=== PATIENT | male | born 1955 | race Caucasian/White ===

== ENCOUNTER 2024-08-13 06:04 | Day surgery (SDC) | payer MEDICARE, SELFPAY ==
[2024-08-13] VITALS (12 sets, daily range): BP systolic 115–153; BP diastolic 69–88; PULSE 60–107; RESP 14–16; TEMP 36.1–36.5; O2SAT 93–97; BMI 23.3
[2024-08-13] MEDS: SODIUM CHLORIDE 0.9 % (FLUSH) 10 ML SYRINGE IVF (06:55)
[2024-08-13] MEDS: LACTATED RINGERS 1000 ML 1,000 ML 100 ML IV (06:55)
--- NOTE | 2024-08-13 07:08 | P.GSOP_ITS ---
Operative Note Date of procedure: 08/13/24 Pre-op diagnosis: 1. Symptomatic left inguinal hernia. Post-op diagnosis: 1. Indirect left inguinal hernia with incarcerated sigmoid epiploic fat. Type of Procedure: 1. Open left inguinal hernia repair with mesh. Indications: 68-year-old male was seen in clinic with a painful left inguinal bulge that was noted several weeks prior to his clinic presentation. Patient works part- time as a bobtail driver and noticed that he was bothered by his pain in the left groin mostly with sitting. He denies any episodes of incarceration. On clinical exam patient was found to have a moderately sized left inguinal hernia that was reducible. Given patient's clinical history and his symptoms, an open left ingu inal hernia repair was recommended. The procedure was discussed in detail. The risks associated procedure including infection, bleeding, nerve pain, and hernia recurrence were all discussed with the patient, he agreed to proceed. Procedure Description: After discussing the risks and benefits of the procedure, the patient signed informed consent.? The operative site was marked and the patient was brought to the operating room and placed on the operating table in supine position.? Care was taken to pad the patient's pressure points.?? The patient was then intubated by anesthesia.?? The operative site was then prepped and draped in the usual sterile fashion.? A time-out was then performed. Surgical site was prepped and draped in sterile fashion. Site of the incision was marked with a marking pen and local anesthetic was injected. An oblique incision was made just above and medial to the left inguinal ligament. Subcutaneous tissue was dissected to external obliques. Superficial subcutaneous vascular branches were clamped, divided and tied with 3-0 Vicryl ties. Small incision was made through the external oblique aponeurosis with scalpel. I then used Metzenbaum scissors to dissect under external obliques and extend my incision. Mosquito clamps were placed on the edges of external oblique exposing the inguinal floor. The left Ilioinguinal nerve was identified and was going through the plain of dissection. The nerve was divided proximally and distally and a 3 cm segment of it was excised. This was not sent to pathology. I then identified the spermatic cord and the hernia sac. I bluntly dissected subcutaneous tissues in order to place Kieran drain around the cord structures. Cremasteric fibers were peeled off and dissected off the hernia sac and cord structures. The indirect hernia sac was identified. There was no evidence of direct inguinal hernia. The hernia sac was from the spermatic cord bluntly and with cautery. The indirect hernia sac was incised and examined from the inside. Sigmoid colon epiploic fat was incarcerated through the hernia. This was not hemorrhagic and only mildly inflamed. The epiploic fat and sigmoid colon were mobilized off the hernia sac with cautery and Metzenbaum scissors with care taken not to injure the sigmoid colon. The sigmoid colon and epiploic fat were then pushed into the abdomen. A stitch using 2-0 Vicryl was placed near the base of the hernia sac through the sac and the hernia sac tied off. Hernia sac was then excised and not sent to pathology. The cut edge of the hernia sac was then oversewn with 2-0 Vicryl suture. The hernia sac was then pushed into preperitoneal space through the internal ring. Surgical field was examined for bleeding and hemostasis was achieved with cautery and Vicryl ties. A Bard mesh onlay was also used for hernia repair. The mesh onlay was sutured in place with interrupted 0-0 Neurolon sutures to the conjoint tendon medially and shelving edge laterally, pubic tubercle inferiorly. Simple interrupted sutures were placed using 0-0 Neurolon at the base of internal inguinal ring making it only large enough to fit a tip of one finger through. Spermatic cord was placed back into scrotum. Bradford drain was removed. External oblique aponeurosis was closed with a running 3-0 Vicryl. Additional local anesthetic w as injected into subcutaneous tissues. Umesh's fascia and subcutaneous tissue was re-approximated with interrupted Vicryl stitches. Skin incision was closed with 4-0 Monocryl subcuticular stitch. Steri strips and sterile dressing were applied over incision. All counts were correct at the end of the case. Patient tolerated the procedure well and was transferred to PACU in stable condition. Findings: Indirect incarcerated inguinal hernia containing epiploic fat. Hernia repaired with mesh. Anesthesia: GETA Surgeon: Laly Hernandez MD Estimated blood loss (mL): 5 Condition: stable Disposition: PACU
--- NOTE | 2024-08-13 07:08 | W.PM.H&PU ---
History & Physical Update History & Physical Update H&P Reviewed and patient assessed: No changes noted
[2024-08-13] MEDS: CEFAZOLIN 1 GM inj IVP (07:38)
[2024-08-13] MEDS: LIDOCAINE 1%-EPI 1:100,000 20 ML INFILTRATI (07:44)
[2024-08-13] MEDS: BUPIVACAINE 0.25% 30 ML INJECTION (07:44)
--- NOTE | 2024-08-13 08:37 | P.ANES_ITS ---
Anesthesia Charges Start Date/Time Anesthesia Start Date: 08/13/24 Anesthesia Start Time: 07:23 Stop Date/Time Anesthesia Stop Date: 08/13/24 Anesthesia Stop Time: 09:08 Coding CPT Codes CPT Codes: ANESTH REPAIR OF HERNIA - 18079 ([id number]) P2 - PATIENT W/MILD SYST DISEASE, QK - CUSTODIAL OPERATIONS MANAGER 2-4 CNCRNT ANES PROC, QX - WEB SITE SPECIALIST SVC W/ MD MED DIRECTION
--- NOTE | 2024-08-13 08:37 | W.ANESCHARGE ---
Anesthesia Charges Start Date/Time Anesthesia Start Date: 08/13/24 Anesthesia Start Time: 07:23 Stop Date/Time Anesthesia Stop Date: 08/13/24 Anesthesia Stop Time: 09:08 Coding CPT Codes CPT Codes: ANESTH REPAIR OF HERNIA - 93072 ([id number]) P2 - PATIENT W/MILD SYST DISEASE, QK - SCIENTIFIC SOFTWARE DEVELOPER 2-4 CNCRNT ANES PROC, QX - CLOTH FOLDER HAND SVC W/ MD MED DIRECTION
--- NOTE | 2024-08-13 09:22 | P.ANES_ITS ---
Anesthesia Charges Start Date/Time Anesthesia Start Date: 08/13/24 Anesthesia Start Time: 07:23 Stop Date/Time Anesthesia Stop Date: 08/13/24 Anesthesia Stop Time: 09:08 Coding CPT Codes CPT Codes: ANESTH REPAIR OF HERNIA - 77314 ([id number]) P2 - PATIENT W/MILD SYST DISEASE, QK - FRUIT OR NUT FARMER 2-4 CNCRNT ANES PROC, QX - EDM OPERATOR SVC W/ MD MED DIRECTION
--- NOTE | 2024-08-13 09:22 | W.ANESCHARGE ---
Anesthesia Charges Start Date/Time Anesthesia Start Date: 08/13/24 Anesthesia Start Time: 07:23 Stop Date/Time Anesthesia Stop Date: 08/13/24 Anesthesia Stop Time: 09:08 Coding CPT Codes CPT Codes: ANESTH REPAIR OF HERNIA - 64603 ([id number]) P2 - PATIENT W/MILD SYST DISEASE, QK - LAW EXAMINER 2-4 CNCRNT ANES PROC, QX - PLASTIC TOP ASSEMBLER SVC W/ MD MED DIRECTION
== END 2024-08-13 11:12 | disposition home or self-care (01) ==
PROVIDERS: PCP Family Medicine; Visit Provider Surgery
PROC: (CPT 49507; principal; 2024-08-13 07:30)
DX: K40.30 Unilateral inguinal hernia, with obstruction, without gangrene, not specified as recurrent (principal)
CPT/HCPCS: 49507; 00830; C1781; J0330; J0665; J0690; J1100; J1171; J2405; J2704; J2710; J3010; J7120